=== PATIENT | female | born 1930 | race Caucasian/White ===

== ENCOUNTER 2017-01-10 05:58 | Day surgery (SDC) | payer MEDICARE, BC ==
[2017-01-05 13:50] VITALS: BMI 28.3
[2017-01-10] MEDS ORDERED: LACTATED RINGERS 1,000 ML IV SCH (06:00)
[2017-01-10 06:28] VITALS: RESP 18; TEMP 96.7
[2017-01-10] MEDS ORDERED: LIDOCAINE 1% 20 ML VIAL (10MG/ML) FOR IV START INTRADERMA ONE (06:44)
[2017-01-10 07:31] LABS: INR 1.1 (<1.1); Prothrombin Time 10.9 sec (9.0-12.0)
[2017-01-10] MEDS ORDERED: TRIAMCINOLONE ACETONIDE 40 MG/ML 1 ML VIAL ONE (07:57)
[2017-01-10] MEDS ORDERED: BUPIVACAINE (PF) 0.5% 30 ML VIAL ONE (07:57)
[2017-01-10] MEDS ORDERED: fentaNYL (PF) 50 MCG/ML 2 ML AMP ONE (07:57)
[2017-01-10] MEDS ORDERED: IOHEXOL 180 MG/ML 1 ML ML ONE (07:57)
[2017-01-10] MEDS ORDERED: MIDAZOLAM 2 MG/2 ML VIAL ONE (07:57)
[2017-01-10] MEDS ORDERED: IV FLUID CONTINUATION 1,000 ML IV ONE (08:23)
[2017-01-10 08:39] VITALS: BP 130/66; PULSE 55
--- NOTE | 2017-01-10 09:09 | FL ---
EXAMINATION TYPE: FL guided pain mgmt statistic DATE OF EXAM: 01/10/2017 8:22 AM FLUOROSCOPY Fluoroscopy time of 7 seconds was used during caudal epidural injection. 3 image/s document/s the pr chetna.
--- NOTE | 2017-01-10 09:11 | P.PCN ---
Date of Procedure: 01/10/17 Procedure(s) Performed: PREOP DIAGNOSIS: 1- Lumbar postlaminectomy syndrome POSTOP DIAGNOSIS:1- Lumbar postlaminectomy syndrome PROCEDURE: Caudal epidural steroid injection with epidurolysis and epidurogram under fluoroscopic guidance ANESTHESIA: Local with 1% lidocaine 3 ml ; IV sedation with Versed 1 mg and fentanyl 25 g EBL: Minimal. PROCEDURE INDICATION: The patient with post-laminectomy syndrome with low back pain and radiculopathy radiating down in both legs, here for a caudal epidural steroid injection with epidurolysis. PROCEDURE DESCRIPTION: The patient was seen and identified in the preoperative area. Risks, benefits, complications, and alternatives were discussed with the patient. The patient agreed to proceed with the procedure and signed the consent. IV was started, and vital signs were stable. Patient was taken to the OR and time out was completed. The patient was placed in the prone position on procedure table and a pillow was placed under the abdomen to reduce lumbar lordosis. The lumbosacral area was prepped and draped in the usual sterile fashion. Vital signs were closely monitored during the procedure. lateral view and the anterior-posterior plates of the sacrum were identified with infiltration of the area overlying the sacral hiatus with 1% lidocaine .A 17 gauge RK epidural needle was used to advance through the sacral hiatus into the caudal epidural space. Omnipaque 180 dye. 2cc was injected and the position of the needle was verified to be in the midline. A Racz catheter was introduced into the epidural space and was advanced towards the L5-S1 interspace under direct fluoroscopic guidance. Multiple passes were made with the catheter for lysis of epidural adhesions. Kenalog 80 mg with 3ml of preservative free Lidocaine 1% and 5 ml of preservative free normal saline was injected slowly. Additional spread was seen to L4 under fluoroscopy. The needle and the catheter were withdrawn intact. EPIDUROGRAM: Omnipaque 180 mg dye 2 ml was injected with spread of the dye into the caudal epidural space and with spread cutoff at L5 prior to epidurolysis. Post epidurolysis dye 2 ml was injected and spread was seen to L3- 4.There was further spread of the solution together with the dye above the L3 COMPLICATIONS: None. DISPOSITION / PLANS: The patient was placed in a supine position and transferred to the recovery area in a stable condition for observation and was discharged from the recovery room after meeting discharge criteria. Home discharge instructions given to the patient by the staff. The patient was reexamined prior to discharge. The patient will schedule a follow up in the clinic in 2-4 weeks.
== END 2017-01-10 09:10 | disposition home or self-care (01) ==
LOC: ORPAIN 05:58
PROVIDERS: ATTEND Specialist
DX: M96.1 Postlaminectomy syndrome, not elsewhere classified (principal); M54.16 Radiculopathy, lumbar region; Z86.718 Personal history of other venous thrombosis and embolism; Z79.01 Long term (current) use of anticoagulants
CPT/HCPCS: 85610; 62264; 99152; J2250; J3301; Q9965; J3010

== ENCOUNTER → 2017-02-10 | Day surgery (SDC) | payer MEDICARE, BC ==
[2017-02-09 09:02] VITALS: BMI 28.3
[~2017-02-10] MED LIST: IOHEXOL 180 MG/ML 1 ML ML ONE; IV FLUID CONTINUATION 1,000 ML IV ONE; LACTATED RINGERS 1,000 ML IV SCH; LIDOCAINE 1% 20 ML VIAL (10MG/ML) FOR IV START INTRADERMA ONE; MIDAZOLAM 2 MG/2 ML VIAL ONE; TRIAMCINOLONE ACETONIDE 40 MG/ML 1 ML VIAL ONE; fentaNYL (PF) 50 MCG/ML 2 ML AMP ONE; hydrALAZINE HCL 20 MG/ML 1 ML VIAL ONE
[2017-02-10 09:52] VITALS: TEMP 97.6
--- NOTE | 2017-02-10 10:54 | P.PCN ---
Date of Procedure: 02/10/17 Procedure(s) Performed: PREOP DIAGNOSIS: 1- Lumbar postlaminectomy syndrome POSTOP DIAGNOSIS:1- Lumbar postlaminectomy syndrome PROCEDURE: Caudal epidural steroid injection with epidurolysis and epidurogram under fluoroscopic guidance ANESTHESIA: Local with 1% lidocaine 3 ml ; IV sedation with Versed 1 mg and fentanyl 25 g EBL: Minimal. PROCEDURE INDICATION: The patient with post-laminectomy syndrome with low back pain and radiculopathy radiating down in both legs, here for a caudal epidural steroid injection with epidurolysis. PROCEDURE DESCRIPTION: The patient was seen and identified in the preoperative area. Risks, benefits, complications, and alternatives were discussed with the patient. The patient agreed to proceed with the procedure and signed the consent. IV was started, and vital signs were stable. Patient was taken to the OR and time out was completed. The patient was placed in the prone position on procedure table and a pillow was placed under the abdomen to reduce lumbar lordosis. The lumbosacral area was prepped and draped in the usual sterile fashion. Vital signs were closely monitored during the procedure. lateral view and the anterior-posterior plates of the sacrum were identified with infiltration of the area overlying the sacral hiatus with 1% lidocaine .A 17 gauge RK epidural needle was used to advance through the sacral hiatus into the caudal epidural space. Omnipaque 180 dye. 2cc was injected and the position of the needle was verified to be in the midline. A Racz catheter was introduced into the epidural space and was advanced towards the L5-S1 interspace under direct fluoroscopic guidance. Multiple passes were made with the catheter for lysis of epidural adhesions. Kenalog 80 mg with 3ml of preservative free Lidocaine 1% and 5 ml of preservative free normal saline was injected slowly. Additional spread was seen to L4 under fluoroscopy. The needle and the catheter were withdrawn intact. EPIDUROGRAM: Omnipaque 180 mg dye 2 ml was injected with spread of the dye into the caudal epidural space and with spread cutoff at L5 prior to epidurolysis. Post epidurolysis dye 2 ml was injected and spread was seen to L4- 5.There was further spread of the solution together with the dye above the L4 COMPLICATIONS: None. DISPOSITION / PLANS: The patient was placed in a supine position and transferred to the recovery area in a stable condition for observation and was discharged from the recovery room after meeting discharge criteria. Home discharge instructions given to the patient by the staff. The patient was reexamined prior to discharge. The patient will schedule a follow up in the clinic in 2-4 weeks.
--- NOTE | 2017-02-10 11:01 | FL ---
EXAMINATION TYPE: FL guided pain mgmt statistic DATE OF EXAM: 02/10/2017 10:57 AM CLINICAL HISTORY: Low back and sacral pain. TECHNIQUE: Fluoroscopy. COMPARISON: None. FINDINGS: Fluoroscopic guidance was provided during pain relief procedure performed by Dr. Lewis . A total of 5 seconds of fluoroscopic time was utilized during the procedure and two spot images ar e acquired. Images acquired shows needle localization at level of the sacrum. IMPRESSION: As Above.
[2017-02-10 11:10] VITALS: RESP 18
[2017-02-10 11:23] VITALS: BP 154/68; PULSE 80
== END | disposition home or self-care (01) ==
LOC: ORPAIN 07:34
PROVIDERS: ATTEND Specialist
DX: M96.1 Postlaminectomy syndrome, not elsewhere classified (principal); M54.16 Radiculopathy, lumbar region; I10 Essential (primary) hypertension; Z79.01 Long term (current) use of anticoagulants; Z86.718 Personal history of other venous thrombosis and embolism
CPT/HCPCS: 62264; 99152; J2250; J0360; J3301; Q9965; J3010; 85610

== ENCOUNTER → 2017-02-10 | Outpatient (CLI) | payer MEDICARE, BC ==
[2017-02-10 07:53] LABS: INR 1.2 (<1.1)
== END | disposition home or self-care (01) ==
LOC: LABPAT 07:17
PROVIDERS: ATTEND Specialist
DX: Z51.81 Encounter for therapeutic drug level monitoring (principal); Z79.01 Long term (current) use of anticoagulants
CPT/HCPCS: 85610

== ENCOUNTER 2017-04-13 08:36 | Day surgery (SDC) | payer MEDICARE, BC ==
[~2017-04-13 08:36] MED LIST changes: -IOHEXOL 180 MG/ML 1 ML ML ONE; -IV FLUID CONTINUATION 1,000 ML IV ONE; -LIDOCAINE 1% 20 ML VIAL (10MG/ML) FOR IV START INTRADERMA ONE; -MIDAZOLAM 2 MG/2 ML VIAL ONE; -TRIAMCINOLONE ACETONIDE 40 MG/ML 1 ML VIAL ONE; -fentaNYL (PF) 50 MCG/ML 2 ML AMP ONE; -hydrALAZINE HCL 20 MG/ML 1 ML VIAL ONE
[2017-04-13 09:01] VITALS: RESP 16; TEMP 98.2
[2017-04-13] MEDS ORDERED: LIDOCAINE 1% 20 ML VIAL (10MG/ML) FOR IV START INTRADERMA ONE (09:19)
[2017-04-13 09:58] LABS: INR 1.1 (<1.1); Prothrombin Time 11.3 sec (9.0-12.0)
[2017-04-13] MEDS ORDERED: IOHEXOL 180 MG/ML 1 ML ML ONE (10:42)
[2017-04-13] MEDS ORDERED: fentaNYL (PF) 50 MCG/ML 2 ML AMP ONE (10:42)
[2017-04-13] MEDS ORDERED: MIDAZOLAM 2 MG/2 ML VIAL ONE (10:42)
[2017-04-13] MEDS ORDERED: DEXAMETHASONE SOD PHOS (MDV) 100 MG/10 ML VIAL ONE (10:42)
--- NOTE | 2017-04-13 11:08 | P.PCN ---
Date of Procedure: 04/13/17 Preoperative Diagnosis: Postoperative Diagnosis: Procedure(s) Performed: PREOP DIAGNOSIS: 1- Lumbar postlaminectomy syndrome POSTOP DIAGNOSIS:1- Lumbar postlaminectomy syndrome PROCEDURE: Caudal epidural steroid injection with epidurolysis and epidurogram under fluoroscopic guidance ANESTHESIA: Local with 1% lidocaine 3 ml ; IV sedation with Versed 1 mg and fentanyl 50 g EBL: Minimal. PROCEDURE INDICATION: The patient with post-laminectomy syndrome with low back pain and radiculopathy radiating down in both legs, here for a caudal epidural steroid injection with epidurolysis. PROCEDURE DESCRIPTION: The patient was seen and identified in the preoperative area. Risks, benefits, complications, and alternatives were discussed with the patient. The patient agreed to proceed with the procedure and signed the consent. IV was started, and vital signs were stable. Patient was taken to the OR and time out was completed. The patient was placed in the prone position on procedure table and a pillow was placed under the abdomen to reduce lumbar lordosis. The lumbosacral area was prepped and draped in the usual sterile fashion. Vital signs were closely monitored during the procedure. lateral view and the anterior-posterior plates of the sacrum were identified with infiltration of the area overlying the sacral hiatus with 1% lidocaine .A 17 gauge RK epidural needle was used to advance through the sacral hiatus into the caudal epidural space. Omnipaque 180 dye. 2cc was injected and the position of the needle was verified to be in the midline. A Racz catheter was introduced into the epidural space and was advanced towards the L5-S1 interspace under direct fluoroscopic guidance. Multiple passes were made with the catheter for lysis of epidural adhesions. Dexamethason 10 mg with 3ml of preservative free Lidocaine 1% and 5 ml of preservative free normal saline was injected slowly. Additional spread was seen to L4 under fluoroscopy. The needle and the catheter were withdrawn intact. EPIDUROGRAM: Omnipaque 180 mg dye 2 ml was injected with spread of the dye into the caudal epidural space and with spread cutoff at L5 prior to epidurolysis. Post epidurolysis dye 2 ml was injected and spread was seen to L3- 4.There was further spread of the solution together with the dye above the L3 COMPLICATIONS: None. DISPOSITION / PLANS: The patient was placed in a supine position and transferred to the recovery area in a stable condition for observation and was discharged from the recovery room after meeting discharge criteria. Home discharge instructions given to the patient by the staff. The patient was reexamined prior to discharge. The patient will schedule a follow up in the clinic in 2-4 weeks. Implants: Indications for Procedure: Operative Findings: Description of Procedure:
[2017-04-13] MEDS ORDERED: IV FLUID CONTINUATION 700 ML IV ONE (11:16)
--- NOTE | 2017-04-13 11:25 | FL ---
EXAMINATION TYPE: FL guided pain mgmt statistic DATE OF EXAM: 04/13/2017 11:12 AM HISTORY: Flouroscopy time 5 seconds of fluoroscopy provided. IMPRESSION: 1. Fluoroscopy time.
[2017-04-13 11:40] VITALS: BP 184/69; PULSE 57
== END 2017-04-13 12:12 | disposition home or self-care (01) ==
LOC: ORPAIN 08:36
PROVIDERS: ATTEND Specialist
DX: M96.1 Postlaminectomy syndrome, not elsewhere classified (principal); G96.12 Meningeal adhesions (cerebral) (spinal); Z86.718 Personal history of other venous thrombosis and embolism; Z79.01 Long term (current) use of anticoagulants
CPT/HCPCS: 85610; 62264; J2250; Q9965; J3010; J1100

== ENCOUNTER → 2017-06-06 | Outpatient (CLI) | payer MEDICARE, BC ==
[2017-06-06 11:23] VITALS: BP 148/70; PULSE 57; RESP 16; TEMP 97
--- NOTE | 2017-06-06 11:42 | P.PN ---
Progress Note - Text Patient returns for followup for chronic back pain with radiation to legs with numbness/tingling that is worsening over the course of the day. Patient recently underwent caudal BRIT with epidurolysis x 3, which provided some relief for 3-4 weeks' interval apiece. Patient continues on tramadol medications for pain from PCP with good relief. Patient denies adverse drug effects from medications. Today, pt denies new-onset weakness, bowel/bladder incontinence, or any other signs or symptoms of cauda equina syndrome. There are no signs of acute intoxication, and no indications of medication diversion or overuse. In addition to above, 13-point review of systems is also negative for chest pain , shortness of breath, changes in vision, changes in hearing, new onset weakness , abdominal pain, diarrhea, extreme fatigue, malaise, fever, skin changes, homicidal or suicidal ideation, or bowel or bladder incontinence. Vital Signs: Reviewed in EMR Gen: WDWN, AAOx3, NAD HEENT: NCAT, EOMI, hearing grossly normal Pulm: resp unlabored Abd: soft, NT, ND Neck: supple, trachea midline ROM in flexion lumbar spine: reduced ROM in extension lumbar spine: reduced Lumbar paravertebral tenderness: + Facet loading: + bilateral SI joint tenderness: + bilateral, L > R Kaiser's test: + L > R Straight leg raise: + bilateral, left at 10 degrees, right at 15 degrees Neuro: CN II-XII grossly intact, muscle strength lower extremities PRESERVED Imaging: Reviewed in EMR Assessment: 1. lumbar PLPS 2. SIJ dysfunction 3. chronic pain syndrome Plan: 1. Explanation: Opioid and psychological risk scores were reviewed. Diagnoses , prognoses, and multiple treatment options including but not limited to physical therapy, interventional therapies, adjuvant medical therapies, narcotic medication therapies, and surgery were discussed with the patient and all questions were answered to the patient's satisfaction. 2. Opioid agreement: no opioids prescribed today 3. Counseling: The patient was counseled extensively on BODY MASS INDEX, EXERCISE. Specifically, the patient was instructed regarding the importance of weight control, and exercise in the context of both chronic pain and overall health. 4. Procedures: bilateral SIJ injection 5. Consultations: None 6. Investigations: None 7. Medications: none 8. Disposition: f/u for procedure as scheduled PQRS measures: 1-Patient's medications are documented in the chart. 2-Tobacco use is negative 3-Patient has not had a pneumococcal vaccine. 4-Advanced care planning discussed, patient unable to give. 5-Opioid contract NOT signed with the patient. 6-Pain positive, follow-up visit or procedure scheduled 7-Patient's blood pressure measured and documented, and patient will follow up with the primary care due to hypertension. 8-Patient's weight was measured, and body mass index ABOVE the normal limits, and counseling was done. Patient instructed to follow up with PCP. 9-Patient WAS NOT identified as an unhealthy alcohol user.
== END | disposition home or self-care (01) ==
LOC: PNWHC3 10:54
PROVIDERS: ATTEND Anesthesiology
DX: G97.1 Other reaction to spinal and lumbar puncture (principal); M53.3 Sacrococcygeal disorders, not elsewhere classified; G89.4 Chronic pain syndrome
CPT/HCPCS: 99211

== ENCOUNTER 2017-06-30 05:59 | Day surgery (SDC) | payer MEDICARE, BC ==
[2017-06-27 08:50] VITALS: BMI 28.7
[2017-06-30] MEDS ORDERED: LIDOCAINE 1% 20 ML VIAL (10MG/ML) FOR IV START INTRADERMA ONE (06:26)
[2017-06-30 06:35] VITALS: RESP 16; TEMP 97.9
[2017-06-30] MEDS ORDERED: LACTATED RINGERS 1,000 ML IV ONE (06:43)
[2017-06-30 07:15] LABS: INR 1.5 (<1.2); Prothrombin Time 14.2 sec (9.0-12.0)
[2017-06-30] MEDS ORDERED: LACTATED RINGERS 1,000 ML IV SCH (07:15)
[2017-06-30] MEDS ORDERED: IV FLUID CONTINUATION 1,000 ML IV ONE (07:57)
--- NOTE | 2017-06-30 08:06 | FL ---
Fluoroscopy HISTORY: Pain 18 seconds fluoroscopy time supplied to the referring clinician. 4 intraoperative C-arm images docum ent the procedure. See dictated report from anesthesia.
[2017-06-30 08:30] VITALS: BP 149/58; PULSE 53
--- NOTE | 2017-06-30 09:36 | P.PCN ---
Date of Procedure: 06/30/17 Preoperative Diagnosis: Postoperative Diagnosis: Procedure(s) Performed: Implants: Surgeon: Ayan Tarango Pathology: none sent Condition: stable Disposition: PACU Indications for Procedure: Operative Findings: Description of Procedure: PREOPERATIVE DIAGNOSIS: 1-Bilateral sacroiliitis. POSTOPERATIVE DIAGNOSIS:. 1-Bilateral sacroiliitis. PROCEDURES: Bilateral Sacroiliac joint steroid injection with fluoroscopic guidance ANESTHESIA: Local with 1% lidocaine; conscious sedation EBL: Minimal. PROCEDURE INDICATIONS: This patient with a history of low back pain secondary to sacroiliitis and lumbar DDD unresponsive to conservative management. Patient stopped Coumadin four days ago, INR this AM was 1.5. PROCEDURE DESCRIPTION: The patient was seen and identified in the preoperative area. Risks, benefits, complications, and alternatives were discussed with the patient (including but not limited to incomplete pain relief, bleeding, infection, nerve damage, and allergies to medications), the patient agreed to proceed with the procedure and signed the consent after all questions were answered. Patient was taken to the OR and time out was completed to verify proper patient , position, laterality of pain, and allergies. Pt was placed in the prone position and a pillow was placed under the abdomen to reduce lumbar lordosis. The lumbosacral area was prepped and draped in the usual sterile fashion. Critical pause was taken. Vital signs were closely monitored during the procedure. The fluoroscopic camera was placed in contralateral oblique view and right sacroiliiac joint lower pole was identified. After local infiltration with 1% lidocaine 2 ml, Subsequently, a 22-gauge 3.5 inch spinal needle was introduced into the posteroinferior aspect of the right sacroiliac joint under direct fluoroscopic visualization. Subsequently, 3 ml of a solution of a total of 6 ml solution containing total 4 mL of 0.5% preservative-free bupivicaine mixed with 80 mg of Kenalog was injected after negative aspiration for CSF, blood, and air and negative for paresthesia. The entire procedure was repeated on the left side as above. Needle was withdrawn intact. Skin was cleansed, and bandages were applied. COMPLICATIONS: None. COMMENTS: DISPOSITION / PLANS: The patient was placed in a supine position and transferred to the recovery area in a stable condition for observation and was discharged from the recovery room after meeting discharge criteria. Home discharge instructions given to the patient by the staff. The patient was reexamined prior to discharge. The patient will schedule a follow up procedure in 2-4 weeks. Will send request to furniture manager for patient to be off Coumadin for five days instead for next procedure.
== END 2017-06-30 08:44 | disposition home or self-care (01) ==
LOC: ORPAIN 05:59
PROVIDERS: ATTEND Anesthesiology
DX: M46.1 Sacroiliitis, not elsewhere classified (principal); M51.36 Other intervertebral disc degeneration, lumbar region; Z79.01 Long term (current) use of anticoagulants
CPT/HCPCS: 85610; J2250; J3301; Q9965; J3010; G0260

== ENCOUNTER 2017-07-27 08:41 | Day surgery (SDC) | payer MEDICARE, BC ==
[2017-07-21 11:52] VITALS: BMI 28.3
[2017-07-27 09:12] VITALS: RESP 16; TEMP 97.8
[2017-07-27 09:25] LABS: Glucose,Whole Blood 107 mg/dL (75-99)
--- NOTE | 2017-07-27 10:51 | P.PCN ---
Date of Procedure: 07/27/17 Preoperative Diagnosis: Bilateral sacroiliitis Sacroiliac joint dysfunction Postoperative Diagnosis: Same as above Procedure(s) Performed: Bilateral sacroiliac joint steroid injection under fluoroscopic guidance Implants: Anesthesia: other (Conscious sedation with IV fentanyl and Versed) Surgeon: Donny Kaufman Pathology: none sent Condition: stable Disposition: PACU Indications for Procedure: Operative Findings: Description of Procedure: The right sacroiliac joint was identified on the AP view of fluoroscopy then the C-arm was tilted to the left oblique position to superimpose the anterior and posterior joint lines on each other and to have a unified joint line with the target point at the inferior one third of this line. I used 22-gauge 3-1/ 2 inch Quincke spinal needle for this procedure and after getting into the sacroiliac joint I injected 40 mg of Kenalog +2 MLS of Marcaine 0.5%. The same procedure was repeated on the left side by tilting the C-arm to the right oblique position this time. At the target point was also at the inferior one third of this unified joint line. Using a 22-gauge 3-1/2 inch Quincke spinal needle I injected 20 mg of Kenalog plus 2 MLS of Marcaine 0.5%. Patient tolerated procedure well.
[2017-07-27] MEDS ORDERED: amLODIPine 5 MG TAB PO STA (10:54)
--- NOTE | 2017-07-27 11:03 | FL ---
Fluoroscopy INDICATION: Pain FINDINGS: Fluoroscopy time: 5 seconds. Images obtained: 2. IMPRESSIONS: 1. Documentation of fluoroscopy.
[2017-07-27 11:47] VITALS: BP 146/73; PULSE 51
== END 2017-07-27 12:04 | disposition home or self-care (01) ==
LOC: ORPAIN 08:41
PROVIDERS: ATTEND Anesthesiology
DX: M46.1 Sacroiliitis, not elsewhere classified (principal); M53.3 Sacrococcygeal disorders, not elsewhere classified; I10 Essential (primary) hypertension; Z86.718 Personal history of other venous thrombosis and embolism
CPT/HCPCS: J3301; G0260

== ENCOUNTER → 2017-07-27 | Outpatient (CLI) | payer MEDICARE, BC ==
[2017-07-27 09:00] LABS: Prothrombin Time 10.3 sec (9.0-12.0)
== END | disposition home or self-care (01) ==
LOC: LABWHC1 08:25
PROVIDERS: ATTEND Anesthesiology
DX: Z01.812 Encounter for preprocedural laboratory examination (principal); M46.1 Sacroiliitis, not elsewhere classified; M53.3 Sacrococcygeal disorders, not elsewhere classified; Z86.718 Personal history of other venous thrombosis and embolism
CPT/HCPCS: 85610

== ENCOUNTER → 2017-08-25 | Outpatient (CLI) | payer MEDICARE, BC ==
[2017-08-25 14:31] VITALS: PULSE 76
--- NOTE | 2017-08-25 14:55 | P.PN ---
Subjective Progress Note Date: 08/25/17 This is follow-up visit for this patient with a history of severe and chronic low back pain secondary to lumbar degenerative disc diseases , lumbar spondylosis with facet arthropathy, , Sacroiliitis , we have done interventional pain management injection , bilateral sacroiliac joint steroid injection patient got good pain relief, more than 50 %, but only for short term, Currently taking pain medication Ultram 50 mg every 8 h , Neurontin 300 mg every 8 hours Patient denies any side effects of the medication, denies excessive drowsiness or sleepiness, denies suicidal ideation, and reports that the current pain medication is NOT helping To control the pain and improve activity of daily living Patient denies any motor or sensory deficit , patient denies any fever or night sweats, denies any change in the bowel movements or urination Physical Examinations : 1-Constitutiona : Cooperative , not in acute distress . 2- musculoskeltal : exams of the Lumber spine = motor strength lower extremities ,thigh and legs .4/5 deep tendon reflexes : normal Knee Jerk , normal ankle Jerk . lumber facet Loading Test positive strait leg raising test positive at 30 degree , RT ,LT , Fabere test positive RT and positive LT . Range of motion: Range of motion in flexion of the lumbar spine 30 degrees Range of motion range of motion of extension of the lumbar spine 10 Sever tenderness over the Sacroiliac joint on the Right , and Left side Assessment and plan = Chronic low back pain secondary to lumbar degenerative disc disease , lumbar spondylosis with facet arthropathy without myelopathy , sacroiliitis She had a good relief, although 50% improvement in the pain level after bilateral sacroiliac joint steroid injections 2 , for this reason she would be a good candidate to have radiofrequency ablation of the L5-S1 doorsal ramus , and radiofrequency ablation of the lateral branches of S1/S2/S3 , we'll do the left side first then later on when to the right side Procedure risk and benefits and alternatives discussed with the patient and she agreed with the preceding, she had to stop the Coumadin for 7 days before the procedure Objective - Vital Signs Vital signs: Vital Signs Temp Pulse 76 08/25/17 14:16 Resp 18 08/25/17 14:16 BP Pulse Ox 94 L 08/25/17 14:16 Intake & Output 08/24/17 08/25/17 08/25/17 18:59 06:59 18:59 Weight 72.575 kg
[2017-08-25 15:09] VITALS: BP 179/79
[2017-08-25 15:10] VITALS: RESP 16
== END ==
LOC: PNWHC3 12:43
PROVIDERS: ATTEND Specialist
DX: M51.36 Other intervertebral disc degeneration, lumbar region (principal); M47.816 Spondylosis without myelopathy or radiculopathy, lumbar region; M46.86 Other specified inflammatory spondylopathies, lumbar region; M53.3 Sacrococcygeal disorders, not elsewhere classified; Z79.891 Long term (current) use of opiate analgesic
CPT/HCPCS: 99211

== ENCOUNTER → 2017-11-30 | Outpatient (CLI) | payer MEDICARE, BC ==
[2017-11-30 15:04] VITALS: BP 169/64; PULSE 64; RESP 16
--- NOTE | 2017-11-30 15:29 | P.PN ---
Subjective Progress Note Date: 11/30/17 This is follow-up visit for this patient with a history of severe and chronic low back pain secondary to sacroiliitis,, lumbar spondylosis with facet arthropathy, we did interventional pain management injection,, radiofrequency ablation of the sacroiliac joint , her right side improved significantly but she continued to have severe localized pain in the left sacroiliac joint area patient currently on Ultram 50 mg twice a day , Neurontin 300 mg daily at bedtime Patient denies any side effects of the medication, denies excessive drowsiness or sleepiness, denies suicidal ideation, and reports that the current pain medication is NOT helping To control the pain and improve activity of daily living . Patient denies any motor or sensory deficit, denies change in bowel movement or urination, patient denies any fever or night sweats Objective - Vital Signs Vital signs: Vital Signs Temp Pulse 64 11/30/17 14:52 Resp 16 11/30/17 14:52 BP 169/64 11/30/17 14:52 Pulse Ox 94 L 11/30/17 14:52 Intake & Output 11/29/17 11/30/17 11/30/17 18:59 06:59 18:59 Weight 77.111 kg - Exam Physical Examinations : 1-Constitutiona : Cooperative , not in acute distress . 2-HEENT : nech ; supple , no Lymphadenopathy , normal thyroid size . eyes : no ptosis , no icterus, no photophobia . ENT : normal of hearing , normal oropharynx , no Thrush . 3- Respiratory : Chest clear to auscultations Bilaterally , no wheezing , no Rhonchi . 4- Cardiovascular : regular rate and rhythem , S1 , S2 , no S3 , no S4. 5- Gastrointestinal : abdomen soft no tenderness , bowel sounds positive all four quadrents , no organomegally . 6- Genitourinary : Defferred . 7- neurologic : Cranial nerve II to XII intact , no focal neurological deffecit . 8-psychatric : alert , oriented X 3 , appropriate affect , intact judgment and insight . 9-Lymphatic : no Lymphadenopathy . 10- musculoskeltal : , Lumber spine = normal moter stegnth lower extremities ,thigh and legs .4/5 deep tendon reflexes : normal Knee Jerk , normal ankle Jerk . lumber facet Loading Test positive left side Sever tenderness over the Sacroiliac joint on the Left side /severe tenderness over the left iliolumbar ligament Assessment and Plan Plan: Assessment and plan= chronic low back pain secondary to sacroiliitis, lumbar spondylosis with lumbar facet arthropathy , Status post radiofrequency ablation of the bilateral sacroiliac joint patient had significant decrease in her low back pain on the right side but she continued to have severe low back pain localized in the left area over the left iliolumbar ligament area, the patient could benefit from Celebrex 100 mg daily patient is not good candidate to have the standard NSAIDs because she is currently taking Coumadin, also patient should continue to use her Ultram 50 mg when necessary for pain every 8 hours and also she could continue his Neurontin 300 mg daily at bedtime and patient will be seen in the pain clinic in a few weeks if she continued to have pain then we have to consider doing left-sided iliolumbar ligament injection
== END | disposition home or self-care (01) ==
LOC: PNWHC3 14:02
PROVIDERS: ATTEND Specialist
DX: G89.29 Other chronic pain (principal); M47.816 Spondylosis without myelopathy or radiculopathy, lumbar region; M46.86 Other specified inflammatory spondylopathies, lumbar region; M46.1 Sacroiliitis, not elsewhere classified; Z79.899 Other long term (current) drug therapy
CPT/HCPCS: 99211

== ENCOUNTER → 2017-12-28 | Outpatient (CLI) | payer MEDICARE, BC ==
[2017-12-28 14:15] VITALS: BP 158/70; PULSE 69; RESP 16
--- NOTE | 2017-12-28 16:03 | P.PN ---
Subjective Progress Note Date: 12/28/17 This is 16 years old female with a chronic history of severe low back pain patient diagnosed with postlaminectomy pain syndrome lumbar area, lumbar spondylosis and sacroiliitis, she continued to have severe low back pain with radiation to the lower extremity mainly to the left side, associated with numbness and tingling sensation, pain is constant and increases with any activity, last visit we started her on Celebrex 100 mg daily but she reported that she had side effects from it she has diarrhea for this reason she stopped taking it, the pain is constant and severe interfere with her quality of life she states taking Ultram 50 mg once to twice a day, she denies any side effect of the medication, she denies any fever or night sweats Objective - Vital Signs Vital signs: Vital Signs Temp Pulse 69 12/28/17 14:02 Resp 16 12/28/17 14:02 BP 158/70 12/28/17 14:02 Pulse Ox 96 12/28/17 14:02 Intake & Output 12/27/17 12/28/17 12/28/17 18:59 06:59 18:59 Weight 79.379 kg - Exam Physical Examinations : 1-Constitutiona : Cooperative , not in acute distress . 2-HEENT : nech ; supple , no Lymphadenopathy , normal thyroid size . eyes : no ptosis , no icterus, no photophobia . ENT : normal of hearing , normal oropharynx , no Thrush . 3- Respiratory : Chest clear to auscultations Bilaterally , no wheezing , no Rhonchi . 4- Cardiovascular : regular rate and rhythem , S1 , S2 , no S3 , no S4. 5- Gastrointestinal : abdomen soft no tenderness , bowel sounds positive all four quadrents , no organomegally . 6- Genitourinary : Defferred . 7- neurologic : Cranial nerve II to XII intact , no focal neurological deffecit . 8-psychatric : alert , oriented X 3 , appropriate affect , intact judgment and insight . 9-Lymphatic : no Lymphadenopathy . 10- musculoskeltal : cervical spine = motor stregnth in the deltoid and biceps, , Lumber spine = normal moter stegnth lower extremities ,thigh and legs .4/5 deep tendon reflexes : normal Knee Jerk , normal ankle Jerk . lumber facet Loading Test positive strait leg raising test positive at 30 degree Right , positve at 30 degree Left Fabere test positive Right and positive Left Sever tenderness over the Sacroiliac joint on the Left side , multiple trigger points in the left side lumbar paravertebral muscles Assessment and Plan Plan: Assessment and plan= chronic severe low back pain secondary to postlaminectomy pain syndrome lumbar area ,and lumbar spondylosis, sacroiliitis Patient could benefit from caudal epidural steroid injection with lysis of epidural adhesions Plan because patient had multiple trigger points in the lumbar paravertebral muscles mainly on the left side she could benefit from Trigger point injection , and this can be done AT the same time ,we do the caudal epidural Time with Patient: Less than 30
--- NOTE | 2017-12-28 16:04 | P.PN ---
Progress Note - Text Progress Note Date: 12/28/17 Patient should get approval from her primary care to hold her Coumadin for 5 days before the procedure
== END | disposition home or self-care (01) ==
LOC: PNWHC3 13:35
PROVIDERS: ATTEND Specialist
DX: G89.29 Other chronic pain (principal); M47.816 Spondylosis without myelopathy or radiculopathy, lumbar region; M54.5 Low back pain; M46.1 Sacroiliitis, not elsewhere classified; M96.1 Postlaminectomy syndrome, not elsewhere classified; Z79.891 Long term (current) use of opiate analgesic
CPT/HCPCS: 99211